=== PATIENT | female | born 1980 | race African-American/Black ===

== ENCOUNTER → 2024-05-23 | Outpatient (CLI) | payer OTHER | LOC: M WHC 07:36 | PROVIDERS: ATTEND Family Medicine | DX: Z12.31 Encounter for screening mammogram for malignant neoplasm of breast (principal) ==

== ENCOUNTER → 2025-01-25 | Outpatient (CLI) | payer OTHER | LOC: M PLARAD 07:42 | PROVIDERS: ATTEND Student in an Organized Health Care Education/Training Program | DX: M79.89 Other specified soft tissue disorders (principal) ==